=== PATIENT | female | born 1955 | race Caucasian/White ===

== ENCOUNTER → 2018-04-20 | Outpatient (CLI) | payer OTHER | END | disposition home or self-care (01) | LOC: CFH 14:23 | PROVIDERS: ATTEND Family Medicine | DX: I87.8 Other specified disorders of veins (principal); M54.5 Low back pain | CPT/HCPCS: 74018 ==

== ENCOUNTER 2018-11-04 22:23 | Emergency (ER) | payer OTHER ==
[~2018-11-04] VITALS: Ht 149.9 cm; Wt 60.7 kg
[2018-11-04] MEDS ORDERED: ROSU5TAB PO (22:29)
--- NOTE | 2018-11-04 22:45 | NUR ---
PT HERE WITH COMPLAINTS RUQ PAIN FOR SEVERAL WEEKS, COMES AND GOES, ALSO IN BACK. STATES YESTERDAY HER L SIDE STARTED HURTING IN THE BACK. MONITORS APPLIED, SIDERAILS UP X2, CALL LIGHT WITHIN REACH. URINE SAMPLE TAKEN TO LAB. AWAITING LAB AND URINE RESULTS
[2018-11-04 22:58] LABS: MICROSCOPIC AUTO
--- NOTE | 2018-11-04 23:00 | NUR ---
IV SITE STARTED, LABS DRAWN. CONSTRUCTION JOB TITLES AT BEDSIDE FOR EKG
[2018-11-04 23:01] LABS: CULTURE INDICATED? YES
[2018-11-04 23:07] LABS: BASOPHILS # (AUTO) 0.04 x10^3/uL (0-0.1); BASOPHILS % (AUTO) 1 % (0-1); EOSINOPHILS % (AUTO) 5 % (1-7); LYMPHOCYTES # (AUTO) 2.68 x10^3/uL (1-3.4); LYMPHOCYTES % (AUTO) 32 % (22-44); MD NO; MEAN CORPUSCULAR HEMOGLOBIN 32.7 pg (27.0-34.8); MEAN CORPUSCULAR HGB CONC 33.5 g/dL (32.4-35.8); MEAN CORPUSCULAR VOLUME 97.8 fL (80-100); MEAN PLATELET VOLUME 8.8 fL (7.4-10.4); MONOCYTES % (AUTO) 6 % (2-9); NEUTROPHILS # (AUTO) 4.81 x10^3/uL (1.8-6.8); NEUTROPHILS % (AUTO) 57 % (42-75); PLATELET COUNT 207 x10^3/uL (130-400); RED BLOOD COUNT 4.67 x10^6/uL (3.82-5.3); RED CELL DISTRIBUTION WIDTH 13.4 % (9.6-15.2)
[2018-11-04 23:20] LABS: ALANINE AMINOTRANSFERASE 34 U/L (12-78); ALBUMIN 3.6 g/dL (3.4-5.0); ANION GAP 10 mmol/L (5-15); CALCIUM 8.5 mg/dL (8.5-10.1); CHLORIDE 109 mmol/L (98-107); CREATININE 0.78 mg/dL (0.55-1.02)
[2018-11-04 23:24] LABS: ALKALINE PHOSPHATASE 108 U/L (45-117); BILIRUBIN,TOTAL 0.1 mg/dL (0.2-1.0); TOTAL PROTEIN 7.6 g/dL (6.4-8.2); TROPONIN I < 0.015 ng/mL (0.000-0.045)
--- NOTE | 2018-11-04 23:39 | NUR ---
PT TO CT
[2018-11-04] MEDS ORDERED: OMNIPAQUE 350 MG/ML, 100ML BOTTLE ONE (23:59)
[2018-11-05] MEDS ORDERED: NITROGLYCERIN OINT 2%, 1GM TP ONE ×2 (00:30)
--- NOTE | 2018-11-05 00:34 | NUR ---
PT MEDICATED PER MAR
[2018-11-05 01:26] VITALS: BP 158/98
--- NOTE | 2018-11-05 01:26 | NUR ---
TASK RN: IMPROVEMENT IN BP NOTED. OKAY TO DC PER ERP. PT DENIES CP/SOB/DIZZINESS/WEAKNESS/NAUSEA. PT PWD AND AGREES TO DC. NITRO PASTE REMOVED AND SKIN CLEANED. DC EDUCATION PROVIDED, PT DEMONSTRATES UNDERSTANDING. PT TRANSFERED SELF TO BEDSIDE WHEELCHAIR WO DIFFICULTY OR CO DIZZINESS/WEAKNESS. PT WHEELED TO DC WITH RN AND SO. SO TO TRANSPORT PT HOME.
== END 2018-11-05 01:30 | disposition home or self-care (01) ==
LOC: ED 23:08
DX: N39.0 Urinary tract infection, site not specified (principal); K29.80 Duodenitis without bleeding; K76.0 Fatty (change of) liver, not elsewhere classified
CPT/HCPCS: 36415; 74177; 80053; 81001; 83690; 84484; 85025; 87086; 87147; 93005; 99284; Q9967

== ENCOUNTER 2021-01-31 14:48 | Emergency (ER) | payer MEDICARE ==
[~2021-01-31] VITALS: Ht 149.9 cm; Wt 63.8 kg
[~2021-01-31 14:48] MED LIST: ROSU5TAB PO
[2021-01-31] MEDS ORDERED: LABETALOL 5MG/ML, 20ML ONE (16:16)
[2021-01-31] MEDS ORDERED: LABETALOL 5MG/ML, 20ML IVPush ONE (16:30)
[2021-01-31 16:38] LABS: ANION GAP 9 mmol/L (5-15); CALCIUM 8.9 mg/dL (8.5-10.1); CHLORIDE 109 mmol/L (98-107); CREATININE 0.67 mg/dL (0.55-1.02)
[2021-01-31 17:52] VITALS: BP 169/91
--- NOTE | 2021-01-31 18:22 | NUR ---
Patient given discharge instructions and they have confirmed that they understand the instructions. Patient ambulatory with steady gait. NAD, all questions answered appropriately, denies additional needs at this time. No personal belongings left in room after discharge.
== END 2021-01-31 18:24 | disposition home or self-care (01) ==
LOC: ED 15:18
DX: I10 Essential (primary) hypertension (principal)
CPT/HCPCS: 36415; 80048; 93005; 96374